=== PATIENT | male | born 1970 | race Two or more races ===

== ENCOUNTER 2017-01-30 23:05 | Emergency (ER) | payer SELFPAY ==
[~2017-01-30] VITALS: Ht 167.6 cm; Wt 72.6 kg
[2017-01-30 23:20] VITALS: BP 148/79
== END 2017-01-30 23:52 | disposition left against medical advice (07) ==
LOC: ER 23:05
DX: M54.9 Dorsalgia, unspecified (principal); R11.0 Nausea; Z53.21 Procedure and treatment not carried out due to patient leaving prior to being seen by health care provider